=== PATIENT | female | born 1995 ===

== ENCOUNTER 2020-03-31 11:48 | Outpatient (CLI) | payer OTHER ==
[~2020-03-31] VITALS: Ht 177.8 cm; Wt 80.0 kg
[2020-03-31 12:18] VITALS: BP 115/69
[2020-03-31 12:22] LABS: BASOPHILS % (AUTO) 1 % (0-1); EOSINOPHILS % (AUTO) 0 % (1-7); LYMPHOCYTES % (AUTO) 12 % (22-44); MEAN CORPUSCULAR HEMOGLOBIN 31.6 pg (27.0-34.8); MEAN CORPUSCULAR HGB CONC 35.9 g/dL (32.4-35.8); MONOCYTES % (AUTO) 5 % (2-9); NEUTROPHILS % (AUTO) 82 % (42-75); PLATELET COUNT 188 x10^3/uL (130-400); RED BLOOD COUNT 4.36 x10^6/uL (3.82-5.3); RED CELL DISTRIBUTION WIDTH 13.2 % (9.6-15.2)
[2020-03-31 12:24] LABS: MD NO
[2020-03-31 12:30] LABS: ALANINE AMINOTRANSFERASE 44 U/L (12-78); ANION GAP 8 mmol/L (5-15); CALCIUM 9.5 mg/dL (8.5-10.1); CHLORIDE 105 mmol/L (98-107)
[2020-03-31 12:33] LABS: ALKALINE PHOSPHATASE 86 U/L (45-117); BILIRUBIN,TOTAL 0.2 mg/dL (0.2-1.0); TOTAL PROTEIN 6.9 g/dL (6.4-8.2)
[2020-03-31 13:02] LABS: CREATININE,URINE RANDOM 30.4 mg/dL
[2020-03-31] MEDS ORDERED: PREN1TAB60 PO (13:34)
== END 2020-03-31 14:10 | disposition home or self-care (01) ==
LOC: LDOP 11:48
PROVIDERS: ATTEND Obstetrics & Gynecology
DX: O16.3 Unspecified maternal hypertension, third trimester (principal); Z3A.30 30 weeks gestation of pregnancy
CPT/HCPCS: 36415; 59025; 80053; 82570; 84156; 84550; 85025

== ENCOUNTER 2020-05-08 11:57 | Outpatient (CLI) | payer OTHER ==
[~2020-05-08] VITALS: Ht 177.8 cm; Wt 82.3 kg
[~2020-05-08 11:57] MED LIST: PREN1TAB60 PO
[2020-05-08 12:50] VITALS: BP 128/77
[2020-05-08 12:55] LABS: BASOPHILS % (AUTO) 0 % (0-1); EOSINOPHILS % (AUTO) 0 % (1-7); LYMPHOCYTES % (AUTO) 10 % (22-44); MEAN CORPUSCULAR HEMOGLOBIN 31.2 pg (27.0-34.8); MEAN PLATELET VOLUME 8.6 fL (7.4-10.4); MONOCYTES % (AUTO) 5 % (2-9); NEUTROPHILS % (AUTO) 85 % (42-75); PLATELET COUNT 148 x10^3/uL (130-400); RED BLOOD COUNT 4.12 x10^6/uL (3.82-5.3); RED CELL DISTRIBUTION WIDTH 13.4 % (9.6-15.2)
[2020-05-08 12:55] LABS: MICROSCOPIC AUTO
[2020-05-08 12:58] LABS: MD NO
[2020-05-08 13:01] LABS: ALANINE AMINOTRANSFERASE 24 U/L (12-78); ALBUMIN 2.6 g/dL (3.4-5.0); ANION GAP 9 mmol/L (5-15); CALCIUM 8.9 mg/dL (8.5-10.1); CHLORIDE 108 mmol/L (98-107); CREATININE 0.67 mg/dL (0.55-1.02)
[2020-05-08 13:03] LABS: ALKALINE PHOSPHATASE 93 U/L (45-117); BILIRUBIN,TOTAL 0.2 mg/dL (0.2-1.0); TOTAL PROTEIN 5.9 g/dL (6.4-8.2)
[2020-05-08 13:06] LABS: CREATININE,URINE RANDOM 85.8 mg/dL
[2020-05-08 13:06] LABS: BILIRUBIN, DIRECT < 0.1 mg/dL (0.1-0.2)
== END 2020-05-08 13:43 | disposition home or self-care (01) ==
LOC: LDOP 11:57
PROVIDERS: ATTEND Obstetrics & Gynecology
DX: O16.3 Unspecified maternal hypertension, third trimester (principal); Z3A.35 35 weeks gestation of pregnancy
CPT/HCPCS: 36415; 59025; 80053; 81001; 82248; 82570; 84156; 84550; 85025

== ENCOUNTER 2020-05-18 10:48 | Inpatient (IN) | payer OTHER ==
[~2020-05-18] VITALS: Ht 177.8 cm; Wt 85.9 kg
[2020-05-18] MEDS ORDERED: SODIUM CITRATE/CITRIC ACID 30 ML UDC PO PRN (11:00)
[2020-05-18] MEDS ORDERED: SODIUM CHLORIDE FLUSH 10ML SYR IVF PRN (11:00)
[2020-05-18] MEDS ORDERED: TERBUTALINE 1 MG/ML, 1ML IVPush PRN (11:00)
[2020-05-18] MEDS ORDERED: CALCIUM CARBONATE 500 MG TAB.CHEW PO PRN (11:00)
[2020-05-18] MEDS ORDERED: TERBUTALINE 1 MG/ML, 1ML SQ PRN (11:00)
[2020-05-18] MEDS ORDERED: MISOPROSTOL 25 MCG TABLET VG PRN (11:00)
[2020-05-18] MEDS ORDERED: OXYTOCIN 30U/ 0.9% NaCL 500ML 500 ML IV PRN (11:00)
[2020-05-18] MEDS ORDERED: OXYTOCIN 30U/ 0.9% NaCL 500ML 500 ML IV ONE (11:00)
[2020-05-18] MEDS ORDERED: FENTANYL PF 100 MCG/2ML IVPush PRN (11:00)
[2020-05-18] MEDS ORDERED: AMPICILLIN 2 GM in SODIUM CHLORIDE 0.9% 100 ML IVPB ONE (11:00)
[2020-05-18] MEDS ORDERED: METOCLOPRAMIDE 5 MG/ML, 2ML IVPush PRN (11:00)
[2020-05-18] MEDS: LACTATED RINGERS 1,000 ML IV SCH ×2 (11:08→20:00)
[2020-05-18] MEDS ORDERED: NEWBORN KIT ONE (11:13)
[2020-05-18] MEDS ORDERED: MISOPROSTOL 200 MCG TABLET ONE (11:14)
[2020-05-18] MEDS ORDERED: MISOPROSTOL 25 MCG TABLET ONE (11:14)
[2020-05-18] MEDS ORDERED: OXYTOCIN 30U/ 0.9% NaCL 500ML 500 ML ONE (11:14)
[2020-05-18 11:27] LABS: BASOPHILS % (AUTO) 1 % (0-1); EOSINOPHILS % (AUTO) 1 % (1-7); LYMPHOCYTES % (AUTO) 11 % (22-44); MEAN CORPUSCULAR HEMOGLOBIN 31.2 pg (27.0-34.8); MEAN CORPUSCULAR HGB CONC 34.5 g/dL (32.4-35.8); MEAN PLATELET VOLUME 8.4 fL (7.4-10.4); MONOCYTES % (AUTO) 6 % (2-9); NEUTROPHILS % (AUTO) 83 % (42-75); PLATELET COUNT 174 x10^3/uL (130-400); RED BLOOD COUNT 4.36 x10^6/uL (3.82-5.3); RED CELL DISTRIBUTION WIDTH 13.7 % (9.6-15.2)
[2020-05-18 11:29] LABS: MD NO
[2020-05-18 11:46] VITALS: BP 136/86
[2020-05-18] MEDS: AMPICILLIN 1 GM in SODIUM CHLORIDE 0.9% 100 ML IVPB SCH ×3 (15:29→23:42)
[2020-05-18] MEDS ORDERED: BUPIVACAINE 0.25% ONE (23:13)
[2020-05-18] MEDS ORDERED: FENTANYL/BUPIV./NS/PF 250 ML EPIDCONT ONE (23:13)
[2020-05-19] MEDS: AMPICILLIN 1 GM in SODIUM CHLORIDE 0.9% 100 ML IVPB SCH ×3 (03:22→11:00)
[2020-05-19] MEDS: LACTATED RINGERS 1,000 ML IV SCH (07:18)
[2020-05-19 08:33] VITALS: BP 136/72
[2020-05-19] MEDS ORDERED: BUPIVACAINE 0.25% ONE (08:48)
[2020-05-19] MEDS ORDERED: MAGNESIUM SULF. PMX 20GM/500ML 500 ML IV ONE ×2 (08:59→16:30)
[2020-05-19] MEDS ORDERED: ESCI20TA10 PO (09:22)
[2020-05-19] MEDS ORDERED: LEVO75TA PO (09:23)
[2020-05-19] MEDS ORDERED: MAGNESIUM SULFATE PMX 4GM/100M 100 ML IVPB ONE (09:30)
[2020-05-19] MEDS ORDERED: MAGNESIUM SULF. PMX 20GM/500ML 500 ML IV PRN (09:30)
[2020-05-19] MEDS ORDERED: ONDANSETRON 2MG/ML, 2ML ONE ×3 (09:32→16:40)
[2020-05-19] MEDS: ONDANSETRON 2MG/ML, 2ML IVPush PRN ×2 (09:34→12:25)
[2020-05-19] MEDS ORDERED: LACTATED RINGERS 1,000 ML INTUTE SCH (11:30)
[2020-05-19] MEDS ORDERED: LACTATED RINGERS 1,000 ML INTUTE PRN (11:30)
[2020-05-19] MEDS ORDERED: MISOPROSTOL 200 MCG TABLET ONE (11:58)
[2020-05-19] MEDS ORDERED: SIMETHICONE 80 MG CHEW TAB PO PRN (13:00)
[2020-05-19] MEDS ORDERED: CARBOPROST TROMETHAMINE 250 MCG/ML, 1ML IM PRN (13:00)
[2020-05-19] MEDS ORDERED: MISOPROSTOL 200 MCG TABLET PR PRN (13:00)
[2020-05-19] MEDS ORDERED: DOCUSATE 100 MG CAPSULE PO PRN (13:00)
[2020-05-19] MEDS ORDERED: OXYTOCIN 30U/ 0.9% NaCL 500ML 500 ML ONE ×2 (13:56→21:25)
[2020-05-19] MEDS: OXYTOCIN 30U/ 0.9% NaCL 500ML 500 ML IV SCH ×2 (14:01→21:26)
[2020-05-19] MEDS ORDERED: ONDANSETRON 2MG/ML, 2ML IVPush PRN (17:00)
[2020-05-19] MEDS ORDERED: IBUPROFEN 600 MG TABLET ONE (18:28)
[2020-05-19] MEDS: IBUPROFEN 600 MG TABLET PO PRN (18:31)
[2020-05-19] MEDS ORDERED: OXYcodone/APAP 5/325MG TABLET ONE (19:18)
[2020-05-19] MEDS: OXYcodone/APAP 5/325MG TABLET PO PRN (19:21)
[2020-05-19 21:20] LABS: BASOPHILS % (AUTO) 0 % (0-1); EOSINOPHILS % (AUTO) 0 % (1-7); LYMPHOCYTES % (AUTO) 5 % (22-44); MEAN CORPUSCULAR HEMOGLOBIN 31.4 pg (27.0-34.8); MEAN CORPUSCULAR HGB CONC 34.8 g/dL (32.4-35.8); MEAN PLATELET VOLUME 8.6 fL (7.4-10.4); MONOCYTES % (AUTO) 4 % (2-9); NEUTROPHILS % (AUTO) 91 % (42-75); PLATELET COUNT 162 x10^3/uL (130-400); RED BLOOD COUNT 4.07 x10^6/uL (3.82-5.3); RED CELL DISTRIBUTION WIDTH 13.5 % (9.6-15.2)
[2020-05-19 21:26] LABS: MD NO
[2020-05-20 04:30] VITALS: BP 130/86
[2020-05-20] MEDS: OXYcodone/APAP 5/325MG TABLET PO PRN ×3 (05:11→16:04)
[2020-05-20] MEDS: IBUPROFEN 600 MG TABLET PO PRN ×2 (05:11→13:41)
[2020-05-20 07:40] VITALS: BP 124/84
[2020-05-20] MEDS: PRENATAL VIT/IRON/FA 1 EACH TABLET PO SCH (09:00)
[2020-05-20 12:10] VITALS: BP 139/88
[2020-05-20 16:17] VITALS: BP 143/91
[2020-05-20] MEDS ORDERED: SENNA/DOCUSATE TABLET ONE ×3 (17:59→18:00)
[2020-05-20] MEDS: SENNA/DOCUSATE TABLET PO SCH (18:08)
[2020-05-20 20:00] VITALS: BP 138/91
[2020-05-21 02:00] VITALS: BP 128/82
[2020-05-21 09:00] VITALS: BP 132/86
[2020-05-21] MEDS: PRENATAL VIT/IRON/FA 1 EACH TABLET PO SCH (09:00)
[2020-05-21] MEDS ORDERED: BISACODYL 5 MG EC TABLET PO SCH (09:00)
[2020-05-21] MEDS: IBUPROFEN 600 MG TABLET PO PRN (09:21)
[2020-05-21] MEDS: SENNA/DOCUSATE TABLET PO SCH (09:21)
[2020-05-21] MEDS ORDERED: HYDR-1067 PO (11:18)
[2020-05-21] MEDS ORDERED: IBUP-1222 PO (11:18)
[2020-05-21] MEDS ORDERED: SENN-92 PO (11:18)
== END 2020-05-21 12:54 | disposition home or self-care (01) | DRG 806 ==
LOC: LDIP 10:48 → 2NE 05-19 20:15 → 2NW 05-20 01:29
PROVIDERS: ADMIT Obstetrics & Gynecology; ATTEND Obstetrics & Gynecology
PROC: 10E0XZZ Delivery of Products of Conception, External Approach (ICD-10-PCS; principal; 2020-05-19)
PROC: 0KQM0ZZ Repair Perineum Muscle, Open Approach (ICD-10-PCS; 2020-05-19)
PROC: 0W8NXZZ Division of Female Perineum, External Approach (ICD-10-PCS; 2020-05-19)
PROC: 10907ZC Drainage of Amniotic Fluid, Therapeutic from Products of Conception, Via Natural or Artificial Opening (ICD-10-PCS; 2020-05-19)
PROC: 3E033VJ Introduction of Other Hormone into Peripheral Vein, Percutaneous Approach (ICD-10-PCS; 2020-05-19)
DX: O14.14 Severe pre-eclampsia complicating childbirth (principal); O99.354 Diseases of the nervous system complicating childbirth; Z37.0 Single live birth; Z20.822 Contact with and (suspected) exposure to COVID-19; O99.824 Streptococcus B carrier state complicating childbirth; O70.1 Second degree perineal laceration during delivery; O76 Abnormality in fetal heart rate and rhythm complicating labor and delivery; O99.284 Endocrine, nutritional and metabolic diseases complicating childbirth; E03.9 Hypothyroidism, unspecified; G43.909 Migraine, unspecified, not intractable, without status migrainosus; Z3A.37 37 weeks gestation of pregnancy
CPT/HCPCS: 36415; 83735; 85025; 86592; 86850; 86900; 87635; G0378; J0290; J2405; J2590; J3010; J3475; J7120